=== PATIENT | female | born 1975 | race Caucasian/White ===

== ENCOUNTER 2018-07-17 05:43 | Day surgery (SDC) | payer OTHER ==
[~2018-07-17] VITALS: Ht 162.6 cm; Wt 53.5 kg
[2018-07-17 07:13] VITALS: Ht 162.6 cm; Wt 53.5 kg
[2018-07-17 07:38] VITALS: BP 132/66; PULSE 66; RESP 20
[2018-07-17 08:07] VITALS: BP 91/52; PULSE 62; RESP 16
[2018-07-17] MEDS ORDERED: FENTAnyl 50 MCG/ML VIAL ONE (08:07)
[2018-07-17] MEDS ORDERED: MIDAZOLAM 1 MG/ML 2 ML INJ ONE ×2 (08:07→08:08)
[2018-07-17 08:22] VITALS: BP 96/57; PULSE 66; RESP 16
--- NOTE | 2018-07-17 11:47 | CONS ---
DATE OF ADMISSION: 07/17/2018 DATE OF CONSULTATION: PATIENT NAME: HARRIETT ATKINSON TYPE OF CONSULTATION: Preoperative gastroenterology. Dear Dr. Lozano: I thank you very much for this kind referral. HISTORY OF PRESENT ILLNESS: Ms. Harriett Atkinson is a 43-year-old female patient who has been referred t o me for further evaluation of upper abdominal pain not responding to therapy. The patient also feel s bloated. There is no definite past history of peptic ulcer disease. The patient was noted to have H. pylori infection and she has received antibiotic therapy. She had abdominal CT scan and she was noted to have hemangioma of the liver. She is not taking any nonsteroidal anti-inflammatory agents. Appetite is good and no weight loss. She is status post cholecystectomy. No change in the bowel perry bit or rectal bleeding. Not a hypertensive or diabetic. No heart disease, lung problem or kidney di sease. SOCIAL HISTORY: Nonsmoker. No alcohol abuse. FAMILY HISTORY: No family history of gastrointestinal tract neoplasm. ALLERGIES: ALLERGIC TO PENICILLIN. PHYSICAL EXAMINATION: VITAL SIGNS: She is 5 feet, 4 inches tall and weighs 120 pounds. HEART: Normal heart sounds. LUNGS: Clear. ABDOMEN: Soft. No masses. Normal bowel sounds. NEUROLOGIC: Normal. IMPRESSION: 1. Upper abdominal pain with bloating, not responding to therapy. 2. Status post antibiotic therapy for Helicobacter pylori infection. 3. Status post cholecystectomy. 4. Hemangioma of the liver. 5. ALLERGY TO PENICILLIN. PLAN: Endoscopic examination for further evaluation. The procedure and possible complications are well explained to the patient. The patient understands and consents to the procedure. I thank you once again. With warmest personal regards, Dictated By: LUCRECIA ROSAS/NIKO Conf#: [id number] DID#: [id number]
== END 2018-07-17 11:38 | disposition home or self-care (01) ==
LOC: GIL 05:43
PROVIDERS: ATTEND Internal Medicine Gastroenterology
DX: K29.60 Other gastritis without bleeding (principal)
CPT/HCPCS: 43239; 84703; 88305; 88312; J2250; J3010; Z7610

== ENCOUNTER → 2018-07-25 | Outpatient (CLI) | payer OTHER | END | disposition home or self-care (01) | LOC: LAB 08:59 | PROVIDERS: ATTEND Internal Medicine Hematology & Oncology | DX: R23.3 Spontaneous ecchymoses (principal) | CPT/HCPCS: 85576 ==